=== PATIENT | female | born 1965 | race Caucasian/White ===

== ENCOUNTER 2016-05-16 07:01 | Day surgery (SDC) | payer MEDICAID ==
[2016-05-13 11:09] VITALS: BMI 49.5
[~2016-05-16] VITALS: Ht 152.4 cm; Wt 111.0 kg
[2016-05-16] VITALS (19 sets, daily range): BP systolic 99–168; BP diastolic 52–81; PULSE 74–98; RESP 14–20; Ht 152.4 cm; Wt 111.0 kg
[~2016-05-16 07:01] MED LIST: CEFAZOLIN 2 GM/50 ML (PMX) 50 ML IVPB ONE; SOD CHLORIDE 0.9% 1,000 ML IV ONE
--- NOTE | 2016-05-16 08:05 | RADRPT ---
PROCEDURE: XR Chest. CLINICAL INDICATION: Preoperative TECHNIQUE: Single frontal view of the chest was obtained COMPARISON: None FINDINGS: The heart and mediastinum are within normal limits. The lungs are clear. There is no pleural effusion or pneumothorax. RPTAT: AA IMPRESSION: No acute disease. .Shade Corrigan MD, Date Time Electronically viewed and signed by .Shade Corrigan MD, on 05/16/2016 08:05 .S/
[2016-05-16 08:18] LABS: BASOPHIL # 0.1 10^3/ul (0.0-0.1); BASOPHILS % 0.6 % (0.0-2.0); EOSINOPHILS # 0.1 10^3/ul (0.0-0.5); HEMATOCRIT 41.4 % (37.0-47.0); HEMOGLOBIN 13.9 g/dl (12.0-16.0); LYMPHOCYTES # 2.5 10^3/ul (0.8-2.9); LYMPHOCYTES % 30.6 % (15.0-51.0); MEAN CORPUSCULAR HEMOGLOBIN 28.2 pg (29.0-33.0); MEAN CORPUSCULAR HGB CONC 33.6 g/dl (32.0-37.0); MEAN CORPUSCULAR VOLUME 83.9 fl (82.0-101.0); MEAN PLATELET VOLUME 8.9 fl (7.4-10.4); MONOCYTE # 0.5 10^3/ul (0.3-0.9); MONOCYTES % 5.8 % (0.0-11.0); PLATELET COUNT 283 10^3/UL (140-440); RED BLOOD COUNT 4.93 10^6/ul (4.20-5.40); RED CELL DISTRIBUTION WIDTH 13.5 % (11.5-14.5); UNCORRECTED WBC 8.1 10^3/ul (4.8-10.8); WHITE BLOOD COUNT 8.1 10^3/ul (4.8-10.8)
[2016-05-16 08:20] LABS: INR 0.99; PROTIME 13.1 Sec (12.2-14.2)
[2016-05-16 08:21] LABS: PARTIAL THROMBOPLASTIN TIME 25.7 Sec (25.0-35.0)
[2016-05-16 08:22] LABS: POTASSIUM 4.4 mmol/L (3.5-5.1)
[2016-05-16 08:23] LABS: CONDITION 1
[2016-05-16 08:25] LABS: CALCIUM 9.4 mg/dl (8.4-10.2); CREATININE 0.52 mg/dl (0.44-1.00)
[2016-05-16] MEDS ORDERED: CEFAZOLIN 1 GM INJ ONE (09:17)
[2016-05-16] MEDS ORDERED: LIDOCAINE 2% (SDV) 5 ML INJ ONE (09:17)
[2016-05-16] MEDS ORDERED: PROPOFOL 20 ML ONE (09:17)
[2016-05-16] MEDS ORDERED: FENTAnyl 50 MCG/ML VIAL ONE (09:17)
[2016-05-16] MEDS ORDERED: MIDAZOLAM 1 MG/ML 2 ML INJ ONE (09:17)
[2016-05-16] MEDS ORDERED: ISOSULFAN BLUE 1% 5 ML INJ SC ONE (09:21)
[2016-05-16] MEDS ORDERED: HYDROmorphONE (0.2 MG/ML) 10ML SYG IV PRN ×2 (10:00)
[2016-05-16] MEDS ORDERED: KETOROLAC 30 MG INJ IV ONE (10:00)
[2016-05-16] MEDS ORDERED: DIPHENHYDRAMINE 50 MG INJ IV PRN (10:00)
[2016-05-16] MEDS ORDERED: METOCLOPRAMIDE 10 MG INJ IV PRN (10:00)
[2016-05-16] MEDS ORDERED: MEPERIDINE 25 MG INJ IV PRN (10:00)
[2016-05-16] MEDS ORDERED: ONDANSETRON 4 MG INJ IV PRN ×2 (10:00→11:30)
[2016-05-16] MEDS ORDERED: FENTAnyl 50 MCG/ML VIAL IV PRN (10:00)
[2016-05-16] MEDS ORDERED: OXYCODONE/ACETAMINOPHEN (5/325) TAB PO PRN ×2 (10:00)
[2016-05-16] MEDS ORDERED: LABETALOL HCL 20MG INJ IV PRN (10:00)
[2016-05-16] MEDS ORDERED: PROCHLORPERAZINE 10 MG INJ IV PRN (10:00)
[2016-05-16] MEDS ORDERED: hydrALAzine 20 MG INJ IV PRN (10:00)
[2016-05-16] MEDS ORDERED: METOCLOPRAMIDE 10 MG INJ ONE (10:07)
[2016-05-16] MEDS ORDERED: DEXAMETHASONE 4 MG/ML 1 ML INJ ONE (10:07)
[2016-05-16] MEDS ORDERED: ONDANSETRON 4 MG INJ ONE (10:07)
[2016-05-16] MEDS ORDERED: PHENYLephrine (100 MCG/ML) 5ML SYG ONE (10:33)
[2016-05-16] MEDS ORDERED: KETOROLAC 30 MG INJ ONE (10:57)
[2016-05-16] MEDS ORDERED: D5W-0.45 NACL + KCL 20 MEQ 1,000 ML IV SCH (11:18)
[2016-05-16] MEDS ORDERED: ACETAMINOPHEN 1000MG/100ML IV 100 ML IVPB PRN (11:30)
[2016-05-16] MEDS ORDERED: morphine 2 MG INJ IV PRN (11:30)
--- NOTE | 2016-05-16 12:51 | OPR ---
DATE OF OPERATION: 05/16/2016 PREOPERATIVE DIAGNOSIS: Large, approximately 3 cm, poorly differentiated left breast cancer. POSTOPERATIVE DIAGNOSIS: Large, approximately 3 cm, poorly differentiated left breast cancer. OPERATION PERFORMED: Left partial mastectomy and axillary dissection. ANESTHESIA: General. ANESTHESIOLOGIST: CRISTINA SUMNER MD SURGEON: Jose Connelly MD GARMENT SEWING MACHINE OPERATOR: Master Mak MD INDICATIONS FOR PROCEDURE: The patient is an unfortunate 51-year-old female who presented with a re latively large mass on her left breast. Biopsy confirmed a poorly differentiated cancer. Although the patient was counseled to undergo urgent surgical intervention, she elected to travel to [place] delaying her definitive surgical treatment for approximately 2 months; however, when she returned, s he requested surgical treatment. She consented and was scheduled for surgery. DESCRIPTION OF PROCEDURE: The patient was brought to the operating theater, placed under general en dotracheal tube anesthesia. The left breast and axillary region were prepped and draped in the usua l sterile fashion. Attention was first directed to performing partial mastectomy. The mass was pal pable in the upper inner quadrant of the left breast. A curvilinear incision was made directly over it. Subcutaneous tissue was dissected with cautery. Skin edges were then elevated with skin hooks and wide circumferential dissection of the tissue associated with the mass then took place. Specim en was elevated, transected, oriented, and sent for gross pathologic analysis. Attending pathologis t, Dr. BRIAN WRIGHT evaluated the lesion and stated that it appeared to be grossly clear. Therefor e, it was sent for permanent pathologic analysis. The wound was irrigated. Minimal bleeding was controlled with cautery. The skin was then reapproxi mated with 4-0 Vicryl sutures in subcuticular fashion. Attention was then directed to performing th e axillary dissection. An approximately 6 cm incision was made at the left axillary hairline. Subc utaneous tissue was dissected with cautery down through the clavipectoral fascia. With blunt dissec tion along the chest wall, the long thoracic nerve was identified and kept out of harm's way. It wa s noted there were several lymph nodes which were enlarged and grossly appeared to contain metastati c disease. Dissection then proceeded more superiorly where the axillary vein was dissected througho ut its course from medial to lateral. The thoracodorsal neurovascular bundle was identified and kep t out of harm's way. In this fashion, all level I and level II nodes were meticulously removed. Si gnificant lymphovascular structures were controlled with the LigaSure device. Specimen was then sen t for permanent pathologic analysis. The wound was irrigated. Minimal bleeding was controlled with cautery. A #10 Indonesian Carlos-Bartlett drain was then brought through the left mid axillary line, cut to size and laid within the axilla. It was secured in place with 2-0 nylon suture in the standard f ashion. The skin was then reapproximated with 4-0 Vicryl suture in subcuticular fashion. Benzoin a nd Steri-Strips were applied to both incisions. Patient tolerated the procedure well. Estimated bl ood loss was 30 mL. There were no complications. The patient was transported in stable condition t o the recovery room. Dictated By: JOSE BROOKE/CHUYITA Conf#: [id number] DID#: [id number]
--- NOTE | 2016-05-16 17:45 | HP ---
DATE OF ADMISSION: 05/16/2016 HISTORY OF PRESENT ILLNESS: The patient is a 51-year-old female who presented with relativ cezar large mass of the left breast. Biopsy confirmed poorly differentiated cancer. The patient was seen by Dr. Connelly and was counseled to undergo urgent surgical intervention. However, patient melvin led to [place], delaying her surgical treatment for 2 months. Upon return, patient requested surgica l treatment. The patient was brought to the hospital and underwent left partial mastectomy and axil domingo dissection by Dr. Connelly. Postoperatively, the patient experienced significant pain and was adm itted for further evaluation and management. The patient denies any fever, chills. Denies diarrhea , denies vomiting. The patient complains of mild nausea. PAST MEDICAL HISTORY: Positive for obesity. PAST SURGICAL HISTORY: Status post cholecystectomy in 2011. FAMILY HISTORY: Negative for breast, ovarian cancer. SOCIAL HISTORY: The patient lives with her and children. The patient denies any tobacco us e, denies any alcohol use, denies any illicit drug use. ALLERGIES: NO KNOWN ALLERGIES. HOME MEDICATIONS: The patient denies taking any medication, stated that she is otherwise healthy. LABORATORY DATA FOR TODAY: CBC: White blood cells 8.1, hemoglobin 13.9, hematocrit 41.4, platelets 283. Chemistry: Sodium is 142, potassium 4.4, chloride 103, carbon dioxide 29, anion gap 14, BUN 17, creatinine 0.52, glucose 142, calcium 9.4. PT 13.1, INR 0.99, APTT is 25.7. IMAGING: Chest x-ray with no acute cardiopulmonary disease. ASSESSMENT AND PLAN: Large poorly differentiated cancer of the left breast, status post left partia l mastectomy and axillary dissection by Dr. Connelly. PLAN: Going to admit patient to medical/surgical floor. Continue Tylenol and morphine p.r.n. for n ausea, Zofran p.r.n. for pain. Continue IV fluids. Advance diet as patient tolerates. Sequential compression device for deep venous thrombosis prophylaxis. Incentive spirometer q.1 hour while emeka ent is awake. CBC and BMP tomorrow. The patient received Ancef intraoperatively. Further recommendations based on clinical course. Plan of care discussed with Dr. Israel. Dictated By: JENNIFER DEAN ELECTRICAL CALIBRATOR for AMY ISRAEL MD SR/NTS Conf#: [id number] DID#: [id number]
[2016-05-17 00:38] VITALS: BP 129/60; RESP 20
[2016-05-17 06:04] LABS: BASOPHILS % 0.2 % (0.0-2.0); EOSINOPHILS % 0.3 % (0.0-7.0); HEMATOCRIT 38.1 % (37.0-47.0); HEMOGLOBIN 12.8 g/dl (12.0-16.0); LYMPHOCYTES # 2.8 10^3/ul (0.8-2.9); LYMPHOCYTES % 28.4 % (15.0-51.0); MEAN CORPUSCULAR HEMOGLOBIN 28.2 pg (29.0-33.0); MEAN CORPUSCULAR HGB CONC 33.5 g/dl (32.0-37.0); MEAN CORPUSCULAR VOLUME 84.1 fl (82.0-101.0); MEAN PLATELET VOLUME 8.7 fl (7.4-10.4); MONOCYTE # 0.6 10^3/ul (0.3-0.9); MONOCYTES % 6.5 % (0.0-11.0); NEUTROPHIL # 6.4 10^3/ul (1.6-7.5); NEUTROPHILS % 64.6 % (39.0-77.0); PLATELET COUNT 277 10^3/UL (140-440); RED BLOOD COUNT 4.53 10^6/ul (4.20-5.40); RED CELL DISTRIBUTION WIDTH 13.7 % (11.5-14.5); UNCORRECTED WBC 9.9 10^3/ul (4.8-10.8); WHITE BLOOD COUNT 9.9 10^3/ul (4.8-10.8)
[2016-05-17 06:14] LABS: POTASSIUM 4.3 mmol/L (3.5-5.1)
[2016-05-17 06:16] LABS: CREATININE 0.7 mg/dl (0.44-1.00)
[2016-05-17 06:17] LABS: CALCIUM 8.5 mg/dl (8.4-10.2)
[2016-05-17 06:32] VITALS: BP 134/63; PULSE 71; RESP 17
[2016-05-17 06:33] LABS: CONDITION 1
[2016-05-17] MEDS ORDERED: HYDROCODONE/APAP (5/325) TAB PO PRN (07:00)
[2016-05-17 08:15] VITALS: BP 128/58; RESP 18
[2016-05-17 11:11] VITALS: BP 102/54; PULSE 74; RESP 18
--- NOTE | 2016-05-17 14:36 | RADRPT ---
Vent Rate: 94 bpm RR Interval: 0 msec [place] Interval: 142 msec QRS Duration: 92 msec QT Interval: 340 msec QTC Interval: 425 msec P-R-T [place]: 45 - 29 - 57 degrees Normal sinus rhythm with sinus arrhythmia Incomplete right bundle branch block Borderline ECG Electronically Signed By: Dmitry Ramirez [id number]
[2016-05-17] MEDS ORDERED: HYDR-3498 PO (15:26)
[2016-05-17 16:22] VITALS: BP 124/65; PULSE 70; RESP 18
--- NOTE | 2016-05-17 18:51 | PN ---
DATE: 05/17/2016 Postoperative day #1. SUBJECTIVE: No complaint except when she moves her arm she has some pain in the area of the operati on on the left side. Has tolerated diet. VITAL SIGNS: Temperature 98.4, heart rate 70 to 74, respirations 18, blood pressure 124/65, saturat ion 96% on room air. Carlos-Bartlett has drained a total of 90 mL since yesterday. The color is stil l serosanguineous. The dressing is intact, wrapped around the chest; it is not tight. ASSESSMENT: Postop day #1. Partial mastectomy on the left side with axillary dissection. Patient is stable. Patient is going to go home with [place] prescription. Other instruction was given by the ____ nurse to the patient. PLAN: Followup by Dr. Connelly in his office. Patient is going to call the office tomorrow, Monday, and make an appointment for further followup. Dictated By: ELIANA BARNES MD PS/NTS Conf#: [id number] DID#: [id number]
== END 2016-05-17 19:25 | disposition home or self-care (01) ==
LOC: SDS 07:01 → MS1 12:55 → SDS 05-17 19:25
PROVIDERS: ATTEND Surgery Surgical Oncology
DX: C50.912 Malignant neoplasm of unspecified site of left female breast (principal); I10 Essential (primary) hypertension
CPT/HCPCS: 19301; 38500; 71010; 80048; 84703; 85025; 85610; 85730; 88307; 93005; J0690; J1100; J1885; J2250; J2370; J2405; J2765; J3010; J3480; Z7512; Z7610; Q9968

== ENCOUNTER 2016-06-09 07:15 | Day surgery (SDC) | payer MEDICAID ==
[~2016-06-09] VITALS: Ht 152.4 cm; Wt 110.7 kg
[2016-06-09] VITALS (18 sets, daily range): BP systolic 104–183; BP diastolic 57–96; PULSE 81–102; RESP 16–22
[~2016-06-09 07:15] MED LIST changes: -CEFAZOLIN 2 GM/50 ML (PMX) 50 ML IVPB ONE; +HYDR-3498 PO; -SOD CHLORIDE 0.9% 1,000 ML IV ONE
[2016-06-09] MEDS ORDERED: SOD CHLORIDE 0.9% 1,000 ML IV SCH (08:30)
[2016-06-09] MEDS ORDERED: POLYMYXIN/BACITRACIN 1L IRRIG IRR ONE (08:30)
[2016-06-09] MEDS ORDERED: CEFAZOLIN 1 GM/50 ML (PMX) 50 ML IVPB ONE ×2 (08:30→08:40)
[2016-06-09] MEDS ORDERED: POLYMYXIN/BACITRACIN 1L IRRIG ONE (08:32)
[2016-06-09] MEDS ORDERED: HEPARIN 1000 UNITS/ML 10 ML INJ ONE (08:40)
[2016-06-09] MEDS ORDERED: LIDOCAINE 1%/EPI (MDV) 20 ML INJ ONE (08:40)
[2016-06-09] MEDS ORDERED: MIDAZOLAM 1 MG/ML 2 ML INJ ONE (08:41)
[2016-06-09] MEDS ORDERED: DIPHENHYDRAMINE 50 MG INJ ONE (08:41)
[2016-06-09] MEDS ORDERED: FENTAnyl 50 MCG/ML VIAL ONE (08:41)
[2016-06-09] MEDS ORDERED: HYDROCODONE/APAP (5/325) TAB PO PRN (11:30)
--- NOTE | 2016-06-09 11:33 | RADRPT ---
PROCEDURE: Ultrasound guidance for placement of needle in right internal jugular vein. CLINICAL INDICATION: Venous access. TECHNIQUE: Prior to the procedure, informed consent was obtained. Risks including bleeding, infection, and pneu mothorax were explained to the patient. The patient understood and was willing to proceed. A procedu ral pause was performed. The patient's name, date of , and procedure to be performed were verif ied. The central line was inserted with all elements of maximal sterile barrier technique. All of th e following were used: head covering, facial mask, sterile gown, sterile gloves, a large sterile she et, hand hygiene, and 2% chlorhexidine for cutaneous antisepsis. The right neck and anterior/super ior chest wall was prepped and draped in usual sterile fashion. Limited sonography of the right neck was then performed. Noted is a patent right internal jugular ve in. Ultrasound images were recorded and stored in the patient's medical record. Following the local injection of Xylocaine, the right internal jugular vein was punctured under sono graphic guidance with a 20-gauge needle through which a 0.018 inch floppy tip guidewire was advanced into the superior vena cava. The patient tolerated the procedure well. The remainder of the proce dure was performed and dictated under separate cover. COMPARISON: None. FINDINGS: The ultrasound images demonstrate a patent right internal jugular vein. The subsequent images demon strate the needle entering the right internal jugular vein. IMPRESSION: 1. Ultrasound guidance for a needle placement in right internal jugular vein. RPTAT: QQ .Valente Falcon MD, Date Time Electronically viewed and signed by .Valente Falcon MD, on 06/09/2016 11:33 .R/
--- NOTE | 2016-06-09 11:39 | RADRPT ---
PROCEDURE: FLUOROSCOPIC AND ULTRASONOGRAPHIC-GUIDED PLACEMENT OF RIGHT CHEST PORT. CLINICAL INDICATION: History of left breast cancer. Venous access for chemotherapy. TECHNIQUE: INTRAPROCEDURE MEDICATIONS: PB antibiotic solution 40 cc applied topically. 1 gram Ancef intravenous ly, intra-op. IV Versed and Fentanyl per protocol. Informed consent was obtained. The procedure, risks, benefits, complications and alternatives were explained to the patient. Risks including bleeding, infection, and pneumothorax were explained. The patient understood and was willing to proceed. A procedural pause was performed. The patient's name, date of , and procedure to be performed w ere verified. The central line was inserted with all elements of maximal sterile barrier technique. All of the fol lowing were used: head covering, facial mask, sterile gown, sterile gloves, a large sterile sheet, h and hygiene, and 2% chlorhexidine for cutaneous antisepsis. The right neck and anterior/superior chest wall were prepped and draped in usual sterile fashion. Limited sonography of the right neck was then performed. Noted is a patent right internal jugular ve in. Following the local injection of 1% lidocaine, the right internal jugular vein was punctured under s onographic guidance with a 20-gauge needle through which a 0.018 inch floppy tip guidewire was advan yamel into the superior vena cava with fluoroscopic guidance. The tract was dilated to 5 Thai and the wire was then replaced with a 0.035 in Amplatz guidewire. Serial dilatation was then performed and a 7 Thai peel away sheath was introduced. A site just inferior to the clavicle in the superior anterior right chest wall was localized. One pe rcent lidocaine was used as local anesthesia. A transverse 2.5 cm incision was made utilizing a 15 b lade scalpel. Utilizing blunt dissection a subcutaneous pocket was created inferior to the incision. The cavity was flushed with approximately 40 cc of PB antibiotic solution. The catheter was tunneled underneath the skin from the newly created pocket to the puncture site in the neck. The central line catheter was pulled through the tract. The catheter was then advanced thr ough the sheath until the tip was positioned in the right atrium. The peel-away sheath was removed. The catheter was flushed and clamped. The 6.6 Thai catheter was then connected to the Angiodynamics power port. The port was then placed into the pocket. Prior to closing the instrument and sponge count was verified and was correct. The subcutaneous tissue was closed with 3-0 Vicryl interrupted suture. The skin at the site of the pock et and in the neck was closed with 4-0 Vicryl suture in a running subcuticular technique. The port w as flushed with 1500 units of heparin in 1.5 cc utilizing a Lam needle. The needle was removed. A dressing was applied. The patient tolerated procedure well. COMPARISON: None. FINDINGS: Ultrasound images were recorded and stored in the patient's medical record. Final radiographic images demonstrate the tip of the catheter in the upper right atrium. A total of 0.2 minutes of fluoroscopy time was used. The ultrasound images demonstrate the needle entering th e internal jugular vein. IMPRESSION: 1. Successful ultrasonographic and fluoroscopic guided placement of right chest power port. RPTAT: QQ .Valente Falcon MD, MD Date Time Electronically viewed and signed by .Valente Falcon MD, on 06/09/2016 11:38 .R/
--- NOTE | 2016-06-09 20:31 | RADRPT ---
Echocardiogram Report Patient Name: NEFTALI LAUREANO Gender: Female Date: 1965 Study Date: 09-Jun-2016 Transportation Consultant: Frank Harley RDCS Location: [facility] Ref. Physician: JONNY GANDARA Quality: Adequate Procedures: Transthoracic echocardiogram with complete 2D, M-Mode, and doppler examination. Indications: Breast Cancer. 2D/M Mode Doppler Measurement Value Normal Ranges Measurement Value Normal Ranges LVIDd 2D 5.9 3.5 - 5.6 cm AV Peak Raymond 1.5 m/sec LVIDs 2D 3.0 2.1 - 4.1 cm AV Peak PG 9.0 mmHg FS 2D 48.6 % LVOT Peak Raymond 1.2 m/sec LVPWd 2D 1.0 0.6 - 1.1 cm LVOT Peak PG 6.0 mmHg IVSd 2D 1.0 0.6 - 1.1 cm MV E Peak Raymond 0.8 m/sec IVS/LVPW 2D 1.0 MV A Peak Raymond 1.0 m/sec AoR Diam 2D 2.9 2.0 - 3.7 cm MV E/A 0.8 LA/Ao 2D 1 0 - 1 MV Decel Time 215 msec EDV 2D 204.0 cm3 MV E/A 0.8 ESV 2D 27.8 cm3 TR Peak Raymond 2.5 m/sec LA Dimen 2D 3.1 2.3 - 4.0 cm TR Peak PG 24.0 mmHg RVSP 27.0 mmHg Findings Left Ventricle: Normal left ventricular systolic function. Mild concentric left ventricular hypertrophy. Mild enlargement of left ventricle cavity. Ejection fraction is visually estimated at 55 %. Tissue Doppler/Mitral Doppler indices are consistent with impaired relaxation (Stage I diastolic dysfunction). Right Ventricle: Normal right ventricular size. Normal right ventricular systolic function. Left Atrium: The left atrium is normal in size. Right Atrium: The right atrium is normal in size. Mitral Valve: Normal appearance and function of the mitral valve with trace physiologic regurgitation. Aortic Valve: Normal appearance of the aortic valve. No significant aortic stenosis or insufficiency. Tricuspid Valve: Normal appearance of the tricuspid valve. Estimated peak PA systolic pressure 27 mmHg. There is trace tricuspid regurgitation. Pulmonic Valve: Normal pulmonic valve appearance. Pericardium: Normal pericardium with no significant pericardial effusion. Aorta: Normal aortic root. IVC: Normal size and normal respiratory collapse consistent with normal right atrial pressure. Conclusions Normal left ventricular systolic function. Mild concentric left ventricular hypertrophy. Mild enlargement of left ventricle cavity. Ejection fraction is visually estimated at 55 %. Tissue Doppler/Mitral Doppler indices are consistent with impaired relaxation (Stage I diastolic dysfunction). Normal appearance and function of the mitral valve with trace physiologic regurgitation. Normal appearance of the tricuspid valve. Estimated peak PA systolic pressure 27 mmHg. There is trace tricuspid regurgitation. Electronically Signed By: Tony Henderson 09-Jun-2016 20:29:55 -0800 Patient Name: NEFTALI LAUREANO Study Date: 09-Jun-2016 [id number]
== END 2016-06-09 13:30 | disposition home or self-care (01) ==
LOC: SDS 07:15
PROVIDERS: ATTEND Internal Medicine Hematology & Oncology
DX: C50.912 Malignant neoplasm of unspecified site of left female breast (principal); I10 Essential (primary) hypertension
CPT/HCPCS: 36561; 76942; 93306; C1788; J0690; J1200; J1644; J2250; J3010; Z7610